=== PATIENT | female | born 1980 | race African-American/Black ===

== ENCOUNTER 2016-11-19 21:17 | Emergency (ER) | payer MEDICAID ==
[~2016-11-19] VITALS: Ht 157.5 cm; Wt 107.3 kg
[~2016-11-19 21:17] MED LIST: ADV250 IH; ALBU8.5H IH; AUD NEB; LORA10TA7 PO
[2016-11-19] MEDS ORDERED: MECL-111 PO (21:22)
[2016-11-19] MEDS ORDERED: BECL8.7A5 IH (21:22)
[2016-11-19] MEDS ORDERED: IPRATROPIUM BROMIDE 0.5 MG/2.5 ML NEB SOLUTION NEB ONE (21:30)
[2016-11-19] MEDS ORDERED: ALBUTEROL SULFATE 5 MG/ML 20 ML NEB SOLN [BULK] NEB ONE (21:30)
[2016-11-19] MEDS ORDERED: 0.9% SODIUM CHLORIDE 5 ML NEB SOLUTION NEB ONE (21:32)
[2016-11-20] MEDS ORDERED: PredniSONE 20 MG TABLET PO ONE (00:15)
[2016-11-20] MEDS ORDERED: ALBUTEROL SULFATE 5 MG/ML 20 ML NEB SOLN [BULK] NEB ONE (00:15)
[2016-11-20] MEDS ORDERED: IPRATROPIUM BROMIDE 0.5 MG/2.5 ML NEB SOLUTION NEB ONE (00:15)
[2016-11-20] MEDS ORDERED: GuaiFENesin/D-METHORPHAN [SUGAR-FREE] 200-20MG/10 ML SYRUP UDCUP PO ONE (00:15)
[2016-11-20] MEDS ORDERED: 0.9% SODIUM CHLORIDE 5 ML NEB SOLUTION NEB ONE (00:17)
[2016-11-20 01:00] VITALS: BP 136/72
[2016-11-20] MEDS ORDERED: ALBUTEROL SULFATE HFA 90 MCG/PUFF 8 GM INHALER IH ONE (02:00)
== END 2016-11-20 02:20 | disposition home or self-care (01) ==
LOC: EMS 21:18
DX: J45.901 Unspecified asthma with (acute) exacerbation (principal); F12.90 Cannabis use, unspecified, uncomplicated
CPT/HCPCS: 94060; 94644; 94645; 99285; J7512; J7611 ×2; J3535

== ENCOUNTER 2016-12-11 02:21 | Emergency (ER) | payer MEDICAID ==
[~2016-12-11] VITALS: Ht 157.5 cm; Wt 104.0 kg
[~2016-12-11 02:21] MED LIST changes: -ADV250 IH; +BECL8.7A5 IH; +MECL-111 PO
[2016-12-11] MEDS ORDERED: ALBUTEROL SULFATE 5 MG/ML 20 ML NEB SOLN [BULK] NEB ONE ×2 (02:45→04:15)
[2016-12-11] MEDS ORDERED: IPRATROPIUM BROMIDE 0.5 MG/2.5 ML NEB SOLUTION NEB ONE ×2 (02:45→04:15)
[2016-12-11] MEDS ORDERED: 0.9% SODIUM CHLORIDE 5 ML NEB SOLUTION NEB ONE ×2 (02:46→04:23)
[2016-12-11] MEDS ORDERED: PredniSONE 20 MG TABLET PO ONE (04:00)
[2016-12-11 05:17] VITALS: BP 152/82
== END 2016-12-11 05:19 | disposition home or self-care (01) ==
LOC: EMS 02:23
DX: J45.909 Unspecified asthma, uncomplicated (principal); F12.90 Cannabis use, unspecified, uncomplicated
CPT/HCPCS: 71010; 94640; 99284; J7512; J7611

== ENCOUNTER 2016-12-24 15:06 | Emergency (ER) | payer MEDICAID ==
[~2016-12-24] VITALS: Ht 157.5 cm; Wt 109.1 kg
[2016-12-24] MEDS ORDERED: IPRATROPIUM BROMIDE 0.5 MG/2.5 ML NEB SOLUTION NEB ONE ×2 (15:45→17:30)
[2016-12-24] MEDS ORDERED: ALBUTEROL SULFATE 2.5 MG/0.5 ML NEB SOLUTION NEB ONE (15:45)
[2016-12-24] MEDS ORDERED: PredniSONE 20 MG TABLET PO ONE (17:30)
[2016-12-24] MEDS ORDERED: ALBUTEROL SULFATE 5 MG/ML 20 ML NEB SOLN [BULK] NEB ONE (17:30)
[2016-12-24 18:30] VITALS: BP 126/73
== END 2016-12-24 18:38 | disposition home or self-care (01) ==
LOC: EMS 15:09
DX: J45.901 Unspecified asthma with (acute) exacerbation (principal)
CPT/HCPCS: 94640; 99284; J7512; J7611; 94644

== ENCOUNTER 2017-01-11 14:12 | Emergency (ER) | payer MEDICAID ==
[~2017-01-11] VITALS: Ht 157.5 cm; Wt 88.6 kg
[2017-01-11] MEDS ORDERED: ALBUTEROL SULFATE 2.5 MG/0.5 ML NEB SOLUTION NEB ONE (14:30)
[2017-01-11] MEDS ORDERED: IPRATROPIUM BROMIDE 0.5 MG/2.5 ML NEB SOLUTION NEB ONE ×3 (14:30→17:15)
[2017-01-11] MEDS ORDERED: ALBUTEROL SULFATE HFA 90 MCG/PUFF 8 GM INHALER IH ONE (14:45)
[2017-01-11] MEDS ORDERED: ALBUTEROL SULFATE 5 MG/ML 20 ML NEB SOLN [BULK] NEB ONE ×2 (14:45→17:15)
[2017-01-11] MEDS ORDERED: PredniSONE 20 MG TABLET PO ONE (17:15)
[2017-01-11] MEDS ORDERED: 0.9% SODIUM CHLORIDE 5 ML NEB SOLUTION NEB ONE (17:22)
[2017-01-11 18:41] VITALS: BP 139/106
== END 2017-01-11 18:55 | disposition home or self-care (01) ==
LOC: EMS 14:15
DX: J45.901 Unspecified asthma with (acute) exacerbation (principal)
CPT/HCPCS: 94644; 94645; 99285; J7512; J7611; J3535

== ENCOUNTER 2017-02-03 07:00 | Emergency (ER) | payer MEDICAID ==
[~2017-02-03] VITALS: Ht 157.5 cm; Wt 109.1 kg
[2017-02-03] MEDS ORDERED: PredniSONE 20 MG TABLET PO ONE (07:45)
[2017-02-03] MEDS ORDERED: IPRATROPIUM BROMIDE 0.5 MG/2.5 ML NEB SOLUTION NEB ONE ×2 (07:45→09:30)
[2017-02-03] MEDS ORDERED: ALBUTEROL SULFATE 5 MG/ML 20 ML NEB SOLN [BULK] NEB ONE ×2 (07:45→09:30)
[2017-02-03] MEDS ORDERED: 0.9% SODIUM CHLORIDE 15 ML NEB SOLUTION NEB ONE (09:29)
[2017-02-03 10:01] VITALS: BP 132/89
[2017-02-03] MEDS ORDERED: ALBUTEROL SULFATE HFA 90 MCG/PUFF 8 GM INHALER IH ONE (10:45)
== END 2017-02-03 11:05 | disposition home or self-care (01) ==
LOC: EMS 07:01
DX: J45.901 Unspecified asthma with (acute) exacerbation (principal)
CPT/HCPCS: 94644; 94645; 99285; J7512; J7611; J3535

== ENCOUNTER 2017-02-15 06:25 | Emergency (ER) | payer MEDICAID ==
[~2017-02-15] VITALS: Ht 157.5 cm; Wt 110.0 kg
[2017-02-15] MEDS ORDERED: IPRATROPIUM BROMIDE 0.5 MG/2.5 ML NEB SOLUTION NEB ONE (06:45)
[2017-02-15] MEDS ORDERED: ALBUTEROL SULFATE 5 MG/ML 20 ML NEB SOLN [BULK] NEB ONE (06:45)
[2017-02-15] MEDS ORDERED: PredniSONE 20 MG TABLET PO ONE (07:15)
[2017-02-15] MEDS ORDERED: ALBUTEROL SULFATE 2.5 MG/0.5 ML NEB SOLUTION NEB ONE (09:00)
[2017-02-15 10:00] VITALS: BP 138/90
[2017-02-15] MEDS ORDERED: ALBUTEROL SULFATE HFA 90 MCG/PUFF 8 GM INHALER IH ONE (10:00)
== END 2017-02-15 10:09 | disposition home or self-care (01) ==
LOC: EMS 06:26
DX: J45.901 Unspecified asthma with (acute) exacerbation (principal)
CPT/HCPCS: 94644; 99285; J7512; J7611; J7613; 94640; J3535

== ENCOUNTER 2017-06-21 08:39 | Emergency (ER) | payer MEDICAID ==
[~2017-06-21] VITALS: Ht 157.5 cm; Wt 107.0 kg
[~2017-06-21 08:39] MED LIST changes: -ALBU8.5H IH; +ALBU8.5H8 IH; -BECL8.7A5 IH; +BECL8.7A7 IH
[2017-06-21] MEDS ORDERED: IPRATROPIUM BROMIDE 0.5 MG/2.5 ML NEB SOLUTION NEB ONE ×2 (09:00→10:30)
[2017-06-21] MEDS ORDERED: ALBUTEROL SULFATE 2.5 MG/0.5 ML NEB SOLUTION NEB ONE (09:00)
[2017-06-21] MEDS ORDERED: PredniSONE 20 MG TABLET PO ONE (10:30)
[2017-06-21] MEDS ORDERED: LEVALBUTEROL HCL 1.25 MG/0.5 ML NEB SOLUTION NEB ONE (10:30)
[2017-06-21] MEDS ORDERED: ALBUTEROL SULFATE HFA 90 MCG/PUFF 8 GM INHALER IH ONE (11:45)
[2017-06-21 12:03] VITALS: BP 139/83
== END 2017-06-21 12:12 | disposition home or self-care (01) ==
LOC: EMS 08:42
DX: J45.901 Unspecified asthma with (acute) exacerbation (principal)
CPT/HCPCS: 94644; 99285; J7512; J7613; Z7610; 94640; J3535

== ENCOUNTER 2017-07-14 07:19 | Emergency (ER) | payer MEDICAID ==
[~2017-07-14] VITALS: Ht 157.5 cm; Wt 109.0 kg
[2017-07-14] MEDS ORDERED: IPRATROPIUM BROMIDE 0.5 MG/2.5 ML NEB SOLUTION NEB ONE (07:45)
[2017-07-14] MEDS ORDERED: PredniSONE 20 MG TABLET PO ONE (07:45)
[2017-07-14] MEDS ORDERED: ALBUTEROL SULFATE 5 MG/ML 20 ML NEB SOLN [BULK] NEB ONE (07:45)
[2017-07-14] MEDS ORDERED: 0.9% SODIUM CHLORIDE 15 ML NEB SOLUTION NEB ONE (07:52)
[2017-07-14 08:47] VITALS: BP 133/104
[2017-07-14] MEDS ORDERED: ALBUTEROL SULFATE HFA 90 MCG/PUFF 8 GM INHALER IH ONE (09:15)
== END 2017-07-14 09:23 | disposition home or self-care (01) ==
LOC: EMS 07:26
DX: J45.901 Unspecified asthma with (acute) exacerbation (principal)
CPT/HCPCS: 71010; 94644; 99285; J7512; J7611; 94640; 99284; J3535

== ENCOUNTER 2017-08-04 02:37 | Emergency (ER) | payer MEDICAID ==
[~2017-08-04] VITALS: Ht 157.5 cm; Wt 109.0 kg
[~2017-08-04 02:37] MED LIST changes: -MECL-111 PO
[2017-08-04] MEDS ORDERED: 0.9% SODIUM CHLORIDE 5 ML NEB SOLUTION NEB ONE ×2 (02:55→04:17)
[2017-08-04] MEDS ORDERED: MethylPREDNISolone SOD SUCC 125 MG/2 ML VIAL IM ONE (03:00)
[2017-08-04] MEDS ORDERED: IPRATROPIUM BROMIDE 0.5 MG/2.5 ML NEB SOLUTION NEB ONE (03:00)
[2017-08-04] MEDS ORDERED: ALBUTEROL SULFATE 5 MG/ML 20 ML NEB SOLN [BULK] NEB ONE ×2 (03:00→04:15)
[2017-08-04] MEDS ORDERED: ACETAMINOPHEN/CODEINE 300-30 MG TABLET PO ONE (03:00)
[2017-08-04 04:59] VITALS: BP 147/63
== END 2017-08-04 05:16 | disposition home or self-care (01) ==
LOC: EMS 02:38
DX: J45.901 Unspecified asthma with (acute) exacerbation (principal); I10 Essential (primary) hypertension
CPT/HCPCS: 94644; 94645; 96372; 99285; J2930; J7611

== ENCOUNTER 2017-11-30 10:37 | Emergency (ER) | payer MEDICAID ==
[~2017-11-30] VITALS: Ht 157.5 cm; Wt 100.0 kg
[2017-11-30] MEDS ORDERED: ALBUTEROL SULFATE HFA 90 MCG/PUFF 8 GM INHALER IH ONE (11:45)
[2017-11-30] MEDS ORDERED: IPRATROPIUM BROMIDE 0.5 MG/2.5 ML NEB SOLUTION NEB ONE (11:45)
[2017-11-30] MEDS ORDERED: ALBUTEROL SULFATE 2.5 MG/0.5 ML NEB SOLUTION NEB ONE (11:45)
[2017-11-30 12:37] VITALS: BP 138/70
== END 2017-11-30 12:47 | disposition home or self-care (01) ==
LOC: EMS 10:37
DX: J45.901 Unspecified asthma with (acute) exacerbation (principal); Z76.0 Encounter for issue of repeat prescription
CPT/HCPCS: 94640; 99284; J7613; J3535

== ENCOUNTER 2018-02-27 00:12 | Emergency (ER) | payer MEDICAID ==
[~2018-02-27] VITALS: Ht 157.5 cm; Wt 109.1 kg
[~2018-02-27 00:12] MED LIST changes: -AUD NEB; -LORA10TA7 PO
[2018-02-27] MEDS ORDERED: ALBU1.252 IH (00:21)
[2018-02-27] MEDS ORDERED: IPRATROPIUM BROMIDE 0.5 MG/2.5 ML NEB SOLUTION NEB ONE ×2 (00:30→02:45)
[2018-02-27] MEDS ORDERED: ALBUTEROL SULFATE 2.5 MG/0.5 ML NEB SOLUTION NEB ONE (00:30)
[2018-02-27] MEDS ORDERED: ALBUTEROL SULFATE 5 MG/ML 20 ML NEB SOLN [BULK] NEB ONE (02:45)
[2018-02-27] MEDS ORDERED: GuaiFENesin/D-METHORPHAN [SUGAR-FREE] 200-20MG/10 ML SYRUP UDCUP PO ONE (02:45)
[2018-02-27] MEDS ORDERED: PredniSONE 20 MG TABLET PO ONE (02:45)
[2018-02-27] MEDS ORDERED: ACETAMINOPHEN 500 MG TABLET PO ONE (02:45)
[2018-02-27] MEDS ORDERED: 0.9% SODIUM CHLORIDE 5 ML NEB SOLUTION NEB ONE (02:49)
[2018-02-27] MEDS ORDERED: ALBUTEROL SULFATE HFA 90 MCG/PUFF 8 GM INHALER IH ONE (03:45)
[2018-02-27 03:59] VITALS: BP 119/81
== END 2018-02-27 04:00 | disposition home or self-care (01) ==
LOC: EMS 00:13
DX: J45.901 Unspecified asthma with (acute) exacerbation (principal)
CPT/HCPCS: 71045; 94644; 99285; J7512; J7611; J7613; 94640; J3535

== ENCOUNTER 2018-03-13 05:49 | Emergency (ER) | payer MEDICAID ==
[~2018-03-13] VITALS: Ht 157.5 cm; Wt 109.0 kg
[~2018-03-13 05:49] MED LIST changes: +ALBU1.252 IH
[2018-03-13] MEDS ORDERED: PredniSONE 20 MG TABLET PO ONE (06:45)
[2018-03-13] MEDS ORDERED: ALBUTEROL SULFATE 2.5 MG/0.5 ML NEB SOLUTION NEB ONE ×2 (06:45→07:30)
[2018-03-13] MEDS ORDERED: IPRATROPIUM BROMIDE 0.5 MG/2.5 ML NEB SOLUTION NEB ONE ×2 (06:45→07:30)
[2018-03-13] MEDS ORDERED: 0.9% SODIUM CHLORIDE 5 ML NEB SOLUTION NEB ONE (06:54)
[2018-03-13 07:19] VITALS: BP 146/85
[2018-03-13] MEDS ORDERED: ALBUTEROL SULFATE HFA 90 MCG/PUFF 8 GM INHALER IH ONE (07:30)
== END 2018-03-13 08:15 | disposition home or self-care (01) ==
LOC: EMS 05:49
DX: J45.901 Unspecified asthma with (acute) exacerbation (principal)
CPT/HCPCS: 94640; 99284; J7512; J7613; J3535

== ENCOUNTER 2018-05-08 09:14 | Emergency (ER) | payer MEDICAID ==
[~2018-05-08] VITALS: Ht 157.5 cm; Wt 109.1 kg
[2018-05-08] MEDS ORDERED: ALBUTEROL SULFATE HFA 90 MCG/PUFF 8 GM INHALER IH ONE (11:45)
[2018-05-08] MEDS ORDERED: ALBUTEROL SULFATE 5 MG/ML 20 ML NEB SOLN [BULK] NEB ONE (11:45)
[2018-05-08] MEDS ORDERED: IPRATROPIUM BROMIDE 0.5 MG/2.5 ML NEB SOLUTION NEB ONE (11:45)
[2018-05-08] MEDS ORDERED: 0.9% SODIUM CHLORIDE 5 ML NEB SOLUTION NEB ONE (11:52)
[2018-05-08] MEDS ORDERED: PredniSONE 20 MG TABLET PO ONE (13:00)
[2018-05-08 13:42] VITALS: BP 128/89
== END 2018-05-08 13:44 | disposition home or self-care (01) ==
LOC: EMS 09:14
DX: J45.901 Unspecified asthma with (acute) exacerbation (principal); E66.01 Morbid (severe) obesity due to excess calories; Z68.41 Body mass index [BMI] 40.0-44.9, adult
CPT/HCPCS: 71046; 94644; 99285; J7512; J7611; J3535

== ENCOUNTER 2018-08-24 05:37 | Emergency (ER) | payer MEDICAID ==
[~2018-08-24] VITALS: Ht 157.5 cm; Wt 109.1 kg
[2018-08-24] MEDS ORDERED: LORA10TA7 PO (05:58)
[2018-08-24] MEDS ORDERED: BECL10.62 IH (05:58)
[2018-08-24] MEDS ORDERED: ALBU8HFA IH (05:58)
[2018-08-24] MEDS ORDERED: IPRATROPIUM BROMIDE 0.5 MG/2.5 ML NEB SOLUTION NEB ONE (06:15)
[2018-08-24] MEDS ORDERED: PredniSONE 20 MG TABLET PO ONE (06:15)
[2018-08-24] MEDS ORDERED: ALBUTEROL SULFATE 5 MG/ML 20 ML NEB SOLN [BULK] NEB ONE (06:15)
[2018-08-24] MEDS ORDERED: 0.9% SODIUM CHLORIDE 15 ML NEB SOLUTION NEB ONE (06:31)
[2018-08-24] MEDS ORDERED: ALBUTEROL SULFATE HFA 90 MCG/PUFF 8 GM INHALER IH ONE (07:45)
[2018-08-24 08:12] VITALS: BP 152/79
== END 2018-08-24 08:25 | disposition home or self-care (01) ==
LOC: EMS 06:03
DX: J45.909 Unspecified asthma, uncomplicated (principal)
CPT/HCPCS: 71045; 94644; 99285; J7512; J3535

== ENCOUNTER 2018-09-21 04:44 | Emergency (ER) | payer MEDICAID ==
[~2018-09-21] VITALS: Ht 157.5 cm; Wt 112.7 kg
[~2018-09-21 04:44] MED LIST changes: +BECL10.62 IH; -BECL8.7A7 IH; +LORA10TA7 PO
[2018-09-21] MEDS ORDERED: 0.9% SODIUM CHLORIDE 5 ML NEB SOLUTION NEB ONE ×4 (04:55→06:06)
[2018-09-21] MEDS ORDERED: IPRATROPIUM BROMIDE 0.5 MG/2.5 ML NEB SOLUTION NEB ONE ×2 (05:00→06:15)
[2018-09-21] MEDS ORDERED: ALBUTEROL SULFATE 2.5 MG/0.5 ML NEB SOLUTION NEB ONE (05:00)
[2018-09-21] MEDS ORDERED: ALBUTEROL SULFATE 5 MG/ML 20 ML NEB SOLN [BULK] NEB ONE ×2 (05:00→06:15)
[2018-09-21] MEDS ORDERED: MethylPREDNISolone SOD SUCC 125 MG/2 ML VIAL IM ONE (05:15)
[2018-09-21 06:30] VITALS: BP 146/115
== END 2018-09-21 07:11 | disposition home or self-care (01) ==
LOC: EMS 04:49
DX: J45.901 Unspecified asthma with (acute) exacerbation (principal)
CPT/HCPCS: 94640; 94644; 96372; 99285; J2930

== ENCOUNTER 2018-10-07 23:41 | Emergency (ER) | payer MEDICAID ==
[~2018-10-07] VITALS: Ht 157.5 cm; Wt 109.1 kg
[2018-10-08] MEDS ORDERED: ALBUTEROL SULFATE 2.5 MG/0.5 ML NEB SOLUTION NEB ONE ×2 (00:30→01:15)
[2018-10-08] MEDS ORDERED: IPRATROPIUM BROMIDE 0.5 MG/2.5 ML NEB SOLUTION NEB ONE ×3 (00:30→01:30)
[2018-10-08] MEDS ORDERED: PredniSONE 20 MG TABLET PO ONE (00:45)
[2018-10-08] MEDS ORDERED: ALBUTEROL SULFATE 5 MG/ML 20 ML NEB SOLN [BULK] NEB ONE (01:30)
[2018-10-08 03:16] VITALS: BP 139/73
== END 2018-10-08 03:20 | disposition home or self-care (01) ==
LOC: EMS 23:41
DX: J45.909 Unspecified asthma, uncomplicated (principal)
CPT/HCPCS: 71045; 81025; 94060; 94640; 94644; 99285; J7512

== ENCOUNTER 2018-10-24 19:06 | Emergency (ER) | payer SELFPAY ==
[~2018-10-24] VITALS: Ht 157.5 cm; Wt 109.1 kg
[2018-10-24] MEDS ORDERED: IPRATROPIUM BROMIDE 0.5 MG/2.5 ML NEB SOLUTION NEB ONE ×2 (19:30→21:45)
[2018-10-24] MEDS ORDERED: ALBUTEROL SULFATE 5 MG/ML 20 ML NEB SOLN [BULK] NEB ONE ×2 (19:30→21:45)
[2018-10-24] MEDS ORDERED: 0.9% SODIUM CHLORIDE 5 ML NEB SOLUTION NEB ONE ×2 (19:41)
[2018-10-24] MEDS ORDERED: PredniSONE 20 MG TABLET PO ONE (20:45)
[2018-10-24 23:00] VITALS: BP 132/88
[2018-10-24] MEDS ORDERED: ALBUTEROL SULFATE HFA 90 MCG/PUFF 8 GM INHALER IH ONE (23:00)
== END 2018-10-24 23:00 | disposition home or self-care (01) ==
LOC: EMS 19:07
DX: J45.901 Unspecified asthma with (acute) exacerbation (principal); Z79.899 Other long term (current) drug therapy
CPT/HCPCS: 94640; 94644; 99285; J7512; J3535

== ENCOUNTER 2018-10-30 14:41 | Emergency (ER) | payer SELFPAY ==
[~2018-10-30] VITALS: Ht 157.5 cm; Wt 110.5 kg
[2018-10-30] MEDS ORDERED: CYCLOBENZAPRINE HCL 10 MG TABLET PO ONE (16:15)
[2018-10-30] MEDS ORDERED: IBUPROFEN 800 MG TABLET PO ONE (16:15)
[2018-10-30 16:51] VITALS: BP 152/86
== END 2018-10-30 16:50 | disposition home or self-care (01) ==
LOC: EMS 14:42
DX: R20.0 Anesthesia of skin (principal); R20.2 Paresthesia of skin; J45.909 Unspecified asthma, uncomplicated; Z79.899 Other long term (current) drug therapy

== ENCOUNTER 2018-12-03 16:39 | Emergency (ER) | payer SELFPAY ==
[~2018-12-03] VITALS: Ht 160 cm; Wt 114.1 kg
[2018-12-03] MEDS ORDERED: 0.9% SODIUM CHLORIDE 5 ML NEB SOLUTION NEB ONE (16:56)
[2018-12-03] MEDS ORDERED: IPRATROPIUM BROMIDE 0.5 MG/2.5 ML NEB SOLUTION NEB ONE ×2 (17:00→18:30)
[2018-12-03] MEDS ORDERED: ALBUTEROL SULFATE 2.5 MG/0.5 ML NEB SOLUTION NEB ONE ×2 (17:00→18:30)
[2018-12-03] MEDS ORDERED: DEXAMETHASONE 4 MG TABLET PO ONE (18:30)
[2018-12-03] MEDS ORDERED: DEXAMETHASONE SOD PHOS 4 MG/ML 5 ML VIAL IM ONE (19:15)
[2018-12-03 19:27] VITALS: BP 136/89
== END 2018-12-03 19:56 | disposition home or self-care (01) ==
LOC: EMS 16:40
DX: J45.901 Unspecified asthma with (acute) exacerbation (principal); Z79.899 Other long term (current) drug therapy
CPT/HCPCS: 94640; 96372; 99284; J1100

== ENCOUNTER 2019-01-18 18:21 | Emergency (ER) | payer BC ==
[~2019-01-18] VITALS: Ht 157.5 cm; Wt 113.6 kg
[2019-01-18] MEDS ORDERED: ALBUTEROL SULFATE 2.5 MG/0.5 ML NEB SOLUTION NEB ONE (18:45)
[2019-01-18] MEDS ORDERED: MAGNESIUM SULFATE 2 GM/WATER 50 ML IV ONE (18:45)
[2019-01-18] MEDS ORDERED: MethylPREDNISolone SOD SUCC 125 MG/2 ML VIAL IVP ONE (18:45)
[2019-01-18] MEDS ORDERED: IPRATROPIUM BROMIDE 0.5 MG/2.5 ML NEB SOLUTION NEB ONE (18:45)
[2019-01-18] MEDS ORDERED: LEVALBUTEROL HCL 1.25 MG/0.5 ML NEB SOLUTION NEB ONE (18:55)
[2019-01-18] MEDS ORDERED: 0.9% SODIUM CHLORIDE 5 ML NEB SOLUTION NEB ONE (18:57)
[2019-01-18] MEDS ORDERED: MAGNESIUM SULFATE 2 GM in DEXTROSE 5%-WATER 50 ML IV ONE (19:00)
[2019-01-18] MEDS ORDERED: BENZONATATE 100 MG CAPSULE PO ONE (20:30)
[2019-01-18] MEDS ORDERED: ALBUTEROL SULFATE HFA 90 MCG/PUFF 8 GM INHALER IH ONE (21:30)
[2019-01-18 22:25] VITALS: BP 140/90
== END 2019-01-18 22:42 | disposition home or self-care (01) ==
LOC: EMS 18:22
DX: J45.901 Unspecified asthma with (acute) exacerbation (principal)
CPT/HCPCS: 71045; 94640; 94644; 96365; 96366; 96375; 99285; J2930; J3475; J7060; J3535

== ENCOUNTER 2019-02-26 15:12 | Emergency (ER) | payer BC ==
[~2019-02-26] VITALS: Ht 157.5 cm; Wt 111.4 kg
[2019-02-26] MEDS ORDERED: IPRATROPIUM BROMIDE 0.5 MG/2.5 ML NEB SOLUTION NEB ONE ×2 (15:30→17:00)
[2019-02-26] MEDS ORDERED: ALBUTEROL SULFATE 2.5 MG/0.5 ML NEB SOLUTION NEB ONE (15:30)
[2019-02-26] MEDS ORDERED: 0.9% SODIUM CHLORIDE 5 ML NEB SOLUTION NEB ONE ×2 (15:38→20:40)
[2019-02-26] MEDS ORDERED: LEVALBUTEROL HCL 1.25 MG/0.5 ML NEB SOLUTION NEB ONE ×2 (16:55→20:45)
[2019-02-26] MEDS ORDERED: 0.9% SODIUM CHLORIDE 15 ML NEB SOLUTION NEB ONE (16:57)
[2019-02-26] MEDS ORDERED: MAGNESIUM SULFATE 2 GM/WATER 50 ML IV ONE (17:00)
[2019-02-26] MEDS ORDERED: MethylPREDNISolone SOD SUCC 125 MG/2 ML VIAL IVP ONE (17:00)
[2019-02-26 21:10] VITALS: BP 133/88
== END 2019-02-26 21:22 | disposition home or self-care (01) ==
LOC: EMS 15:14
DX: J45.901 Unspecified asthma with (acute) exacerbation (principal); Z79.899 Other long term (current) drug therapy
CPT/HCPCS: 94640; 94644; 96365; 96366; 96375; 99285; J2930; J3475

== ENCOUNTER 2019-04-02 15:49 | Emergency (ER) | payer BC ==
[~2019-04-02] VITALS: Ht 157.5 cm; Wt 109.1 kg
[2019-04-02] MEDS ORDERED: IPRATROPIUM BROMIDE 0.5 MG/2.5 ML NEB SOLUTION NEB ONE (16:15)
[2019-04-02] MEDS ORDERED: ALBUTEROL SULFATE 5 MG/ML 20 ML NEB SOLN [BULK] NEB ONE (16:15)
[2019-04-02] MEDS ORDERED: 0.9% SODIUM CHLORIDE 5 ML NEB SOLUTION NEB ONE ×2 (17:07→20:02)
[2019-04-02] MEDS ORDERED: ALBUTEROL SULFATE 2.5 MG/0.5 ML NEB SOLUTION NEB ONE (19:15)
[2019-04-02] MEDS ORDERED: PredniSONE 20 MG TABLET PO ONE (19:15)
[2019-04-02] MEDS ORDERED: ALBUTEROL SULFATE HFA 90 MCG/PUFF 8 GM INHALER IH ONE (21:00)
[2019-04-02 21:24] VITALS: BP 136/84
== END 2019-04-02 21:28 | disposition home or self-care (01) ==
LOC: EDUNIT# 15:49 → EMS 15:51
DX: J45.901 Unspecified asthma with (acute) exacerbation (principal); R03.0 Elevated blood-pressure reading, without diagnosis of hypertension; Z79.899 Other long term (current) drug therapy
CPT/HCPCS: 94640; 94644; 99285; J7512; 94060; J3535

== ENCOUNTER 2019-04-30 15:36 | Emergency (ER) | payer BC ==
[~2019-04-30] VITALS: Ht 157.5 cm; Wt 109.1 kg
[2019-04-30] MEDS ORDERED: PredniSONE 20 MG TABLET PO ONE (16:45)
[2019-04-30] MEDS ORDERED: IPRATROPIUM BROMIDE 0.5 MG/2.5 ML NEB SOLUTION NEB ONE (16:45)
[2019-04-30] MEDS ORDERED: ALBUTEROL SULFATE 5 MG/ML 20 ML NEB SOLN [BULK] NEB ONE (16:45)
[2019-04-30] MEDS ORDERED: 0.9% SODIUM CHLORIDE 15 ML NEB SOLUTION NEB ONE (16:51)
[2019-04-30] MEDS ORDERED: ALBUTEROL SULFATE HFA 90 MCG/PUFF 8 GM INHALER IH ONE (17:00)
[2019-04-30 18:52] VITALS: BP 140/69
== END 2019-04-30 19:00 | disposition home or self-care (01) ==
LOC: EMS 15:37
DX: J45.901 Unspecified asthma with (acute) exacerbation (principal)
CPT/HCPCS: 71046; 94640; 99284; J7512; J3535

== ENCOUNTER 2019-07-08 06:47 | Emergency (ER) | payer BC ==
[~2019-07-08] VITALS: Ht 157.5 cm; Wt 118.2 kg
[2019-07-08] MEDS ORDERED: IPRAHFA IH (06:54)
[2019-07-08] MEDS ORDERED: IPRATROPIUM BROMIDE 0.5 MG/2.5 ML NEB SOLUTION NEB ONE ×3 (07:00→10:15)
[2019-07-08] MEDS ORDERED: ALBUTEROL SULFATE 2.5 MG/0.5 ML NEB SOLUTION NEB ONE ×2 (07:00→08:45)
[2019-07-08] MEDS ORDERED: 0.9% SODIUM CHLORIDE 5 ML NEB SOLUTION NEB ONE ×3 (07:03→10:09)
[2019-07-08] MEDS ORDERED: PredniSONE 20 MG TABLET PO ONE (08:15)
[2019-07-08] MEDS ORDERED: ALBUTEROL SULFATE 5 MG/ML 20 ML NEB SOLN [BULK] NEB ONE (10:15)
[2019-07-08 11:30] VITALS: BP 161/85
== END 2019-07-08 12:01 | disposition home or self-care (01) ==
LOC: EMS 06:47
DX: J45.901 Unspecified asthma with (acute) exacerbation (principal); Z79.899 Other long term (current) drug therapy
CPT/HCPCS: 94640; 94644; 99285; J7512

== ENCOUNTER 2019-07-20 14:04 | Emergency (ER) | payer BC ==
[~2019-07-20] VITALS: Ht 157.5 cm; Wt 118.2 kg
[~2019-07-20 14:04] MED LIST changes: +IPRAHFA IH
[2019-07-20] MEDS ORDERED: IPRATROPIUM BROMIDE 0.5 MG/2.5 ML NEB SOLUTION NEB ONE ×2 (14:15→15:15)
[2019-07-20] MEDS ORDERED: ALBUTEROL SULFATE 2.5 MG/0.5 ML NEB SOLUTION NEB ONE ×2 (14:15→15:15)
[2019-07-20] MEDS ORDERED: ALBUTEROL SULFATE HFA 90 MCG/PUFF 8 GM INHALER IH ONE (15:15)
[2019-07-20 16:45] VITALS: BP 136/86
== END 2019-07-20 17:15 | disposition home or self-care (01) ==
LOC: EMS 14:06
DX: J45.901 Unspecified asthma with (acute) exacerbation (principal)
CPT/HCPCS: 94640; 96374; J3535

== ENCOUNTER 2022-02-16 11:24 | Emergency (ER) | payer BC, MEDICAID ==
[~2022-02-16] VITALS: Ht 157.5 cm; Wt 107.3 kg
[2022-02-16 13:32] VITALS: BP 143/66
[2022-02-16] MEDS ORDERED: PRED-554 PO (15:09)
[2022-02-16] MEDS ORDERED: ALBU8HFA IH (15:09)
[2022-02-16] MEDS ORDERED: A20IH1 NEB (15:09)
== END 2022-02-16 15:30 | disposition left against medical advice (07) ==
LOC: EMS 11:24
DX: J45.901 Unspecified asthma with (acute) exacerbation (principal); Z76.0 Encounter for issue of repeat prescription
CPT/HCPCS: 99281; 99283

== ENCOUNTER 2022-11-14 03:50 | Emergency (ER) | payer MEDICAID, OTHER ==
[~2022-11-14] VITALS: Ht 157.5 cm; Wt 100.0 kg
[~2022-11-14 03:50] MED LIST changes: +A20IH1 NEB; +ALBU8HFA IH; +PRED-554 PO
[2022-11-14] MEDS ORDERED: IPRATROPIUM BROMIDE 0.5 MG/2.5 ML NEB SOLUTION NEB ONE (05:00)
[2022-11-14] MEDS ORDERED: ALBUTEROL SULFATE 2.5 MG/0.5 ML NEB SOLUTION NEB ONE (05:00)
[2022-11-14] MEDS ORDERED: DEXAMETHASONE SOD PHOS 4 MG/ML 5 ML VIAL IM ONE (05:30)
[2022-11-14 05:55] VITALS: BP 167/100
== END 2022-11-14 07:10 | disposition home or self-care (01) ==
LOC: EMS 03:51
DX: J45.909 Unspecified asthma, uncomplicated (principal)
CPT/HCPCS: 99283; 94640; 96372; J1100; 94644

== ENCOUNTER 2023-06-21 21:25 | Emergency (ER) | payer MEDICAID, OTHER ==
[~2023-06-21] VITALS: Ht 157.5 cm; Wt 113.6 kg
[~2023-06-21 21:25] MED LIST changes: +ALBU18HF12 IH; -ALBU8HFA IH
[2023-06-21 21:44] VITALS: BP 116/74; PULSE 76; RESP 20; TEMP 98.3
[2023-06-21] MEDS ORDERED: DEXAMETHASONE SOD PHOS 4 MG/ML 5 ML VIAL IM ONE (22:45)
[2023-06-21] MEDS ORDERED: ALBU18HF12 IH ×2 (22:47)
[2023-06-21] MEDS ORDERED: ALBU2.5V39 NEB (22:47)
== END 2023-06-21 23:16 | disposition home or self-care (01) ==
LOC: EMS 21:26
DX: J45.909 Unspecified asthma, uncomplicated (principal)
CPT/HCPCS: 99283; 96372; J1100

== ENCOUNTER 2023-09-08 10:29 | Emergency (ER) | payer SELFPAY ==
[~2023-09-08] VITALS: Ht 157.5 cm; Wt 109.1 kg
[~2023-09-08 10:29] MED LIST changes: +ALBU2.5V39 NEB
[2023-09-08 10:30] VITALS: TEMP 98.4
[2023-09-08] MEDS ORDERED: ALBU18HF12 IH (10:59)
[2023-09-08] MEDS ORDERED: FLUT10.67 IH (10:59)
[2023-09-08] MEDS ORDERED: ALBU2.5V39 NEB (10:59)
[2023-09-08] MEDS: ALBUTEROL SULFATE 2.5 MG/0.5 ML NEB SOLUTION NEB ONE (11:18)
[2023-09-08] MEDS: IPRATROPIUM BROMIDE 0.5 MG/2.5 ML NEB SOLUTION NEB ONE (11:18)
[2023-09-08 11:29] VITALS: PULSE 75; RESP 18; O2SAT 97
[2023-09-08 11:30] VITALS: BP 149/98
[2023-09-08 11:44] VITALS: PULSE 68; RESP 18; O2SAT 100
[2023-09-08] MEDS ORDERED: PRED-554 PO (11:46)
[2023-09-08] MEDS: PredniSONE 20 MG TABLET PO ONE (12:07)
== END 2023-09-08 12:15 | disposition home or self-care (01) ==
LOC: EMS 10:29
DX: J45.909 Unspecified asthma, uncomplicated (principal)
CPT/HCPCS: 99283; 94640; J7512

== ENCOUNTER 2024-05-01 22:14 | Emergency (ER) | payer SELFPAY ==
[~2024-05-01] VITALS: Ht 157.5 cm; Wt 118.2 kg
[~2024-05-01 22:14] MED LIST changes: -A20IH1 NEB; +ACET-66 PO; -ALBU1.252 IH; -ALBU8.5H8 IH; -BECL10.62 IH; +BUDE10.27 IH; +FLUT10.67 IH; +IBUP-1554 PO; -IPRAHFA IH; +METH-659 PO; -PRED-554 PO
[2024-05-01 22:18] VITALS: TEMP 98.5
[2024-05-01 23:40] VITALS: PULSE 88; PULSE 91; RESP 18; O2SAT 97; O2SAT 99
[2024-05-01] MEDS: IPRATROPIUM BROMIDE 0.5 MG/2.5 ML NEB SOLUTION NEB ONE (23:40)
[2024-05-01] MEDS: ALBUTEROL SULFATE 2.5 MG/0.5 ML NEB SOLUTION NEB ONE (23:40)
[2024-05-02] MEDS ORDERED: PRED-554 PO (01:23)
[2024-05-02] MEDS ORDERED: ALBU2.5V39 NEB (01:23)
[2024-05-02 01:31] VITALS: BP 129/63; PULSE 86; RESP 18
[2024-05-02] MEDS: PredniSONE 20 MG TABLET PO ONE (01:36)
[2024-05-02] MEDS: ALBUTEROL SULFATE HFA 90 MCG/PUFF 8 GM INHALER IH ONE (01:45)
== END 2024-05-02 01:51 | disposition home or self-care (01) ==
LOC: EMS 22:14
DX: J45.901 Unspecified asthma with (acute) exacerbation (principal)
CPT/HCPCS: 99283; 94640; 71045; J7512; J3535; J7613

== ENCOUNTER 2024-05-19 05:09 | Emergency (ER) | payer SELFPAY ==
[~2024-05-19] VITALS: Ht 152.4 cm; Wt 113.6 kg
[~2024-05-19 05:09] MED LIST changes: +PRED-554 PO
[2024-05-19 05:15] VITALS: BP 127/77; PULSE 89; RESP 20; TEMP 99.3; O2SAT 100
[2024-05-19] MEDS ORDERED: ALBU2.5V39 NEB (06:21)
[2024-05-19] MEDS ORDERED: PRED-554 PO (06:21)
[2024-05-19] MEDS ORDERED: ALBU18HF12 IH (06:21)
[2024-05-19] MEDS: IPRATROPIUM BROMIDE 0.5 MG/2.5 ML NEB SOLUTION NEB ONE (06:32)
[2024-05-19] MEDS: ALBUTEROL SULFATE 2.5 MG/0.5 ML NEB SOLUTION NEB ONE (06:33)
== END 2024-05-19 06:56 | disposition home or self-care (01) ==
LOC: EMS 05:10
DX: J45.901 Unspecified asthma with (acute) exacerbation (principal); R06.02 Shortness of breath
CPT/HCPCS: 99283; Z7502